=== PATIENT | female | born 1955 | race Caucasian/White ===

== ENCOUNTER → 2017-06-12 | Outpatient (CLI) | payer OTHER | LOC: FIMAGING 14:34 | PROVIDERS: ATTEND Internal Medicine | DX: Z12.31 Encounter for screening mammogram for malignant neoplasm of breast (principal); Z80.3 Family history of malignant neoplasm of breast | CPT/HCPCS: G0202 ==

== ENCOUNTER → 2018-01-23 | Outpatient (CLI) | payer OTHER | LOC: BHFA 13:00 | PROVIDERS: ATTEND Nurse Practitioner Family | DX: I42.9 Cardiomyopathy, unspecified (principal); I10 Essential (primary) hypertension; E78.5 Hyperlipidemia, unspecified; E03.9 Hypothyroidism, unspecified; I20.8 Other forms of angina pectoris ==

== ENCOUNTER 2018-03-17 12:18 | Inpatient (IN) | payer OTHER, MEDICARE ==
--- NOTE | 2018-03-17 12:37 | CPEKG ---
Heart Rate: 62 RR Interval: 968 P-R Interval: 160 QRSD Interval: 104 QT Interval: 428 QTC Interval: 435 P [place]: 65 QRS [place]ide: 9 T Wave [place]: 42 EKG Severity - NORMAL ECG - EKG Impression: SINUS RHYTHM Electronically Signed By: Nathanael Stahl 17-Mar-2018 13:30:10
--- NOTE | 2018-03-17 12:41 | EDPHY ---
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 The patient reports she has been experiencing chest pain for the past 3 days. 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 She has some degree of chronic chest pain which she typically is able to manage with beta-mony and long-acting nitrates. She has been increasing her beta-mony but has developed changing chest pain with some radiation to her neck and paresthesias in the left arm. The patient reports a cardiac catheterization many years ago which diagnosed cardiomyopathy which subsequently improved following treatment with carvedilol. The patient denies any fever, cough or congestion. She has had some recent adjustments to her thyroid medications. REVIEW OF SYSTEMS: A comprehensive 10 point review of systems is otherwise negative aside from elements mentioned in the history of present illness. Source: Patient Exam Limitations: No limitations - Personal History Current Tetanus Diphtheria and Acellular Pertussis (TDAP): Unsure - Medical/Surgical History Hx Asthma: Yes Hx Chronic Respiratory Disease: No Hx Diabetes: No Hx Cardiac Disease: Yes Hx Renal Disease: No Hx Cirrhosis: No Hx Alcoholism: No Hx HIV/AIDS: No Hx Splenectomy or Spleen Trauma: No Other PMH: ANGINA LARYNGEAL OBSTRUCTION /TRACH/HASHIMOTOS - Social History Smoking Status: Never smoked - Physical Exam Exam: General Appearance: Alert, no distress Eyes: Pupils equal and round no pallor or injection ENT, Mouth: Mucous membranes moist Respiratory: There are no retractions, lungs are clear to auscultation Cardiovascular: Regular rate and rhythm Gastrointestinal: Abdomen is soft and nontender, no masses, bowel sounds normal Neurological: 5/5 strength all 4 extremities Skin: Warm and dry, no rashes Musculoskeletal: Neck is supple nontender Extremities: symmetrical, full range of motion Constitutional: Initial Vital Signs Temperature (C) 36.4 C 03/17/18 12:22 Heart Rate 72 03/17/18 12:22 Respiratory Rate 18 03/17/18 12:22 Blood Pressure 140/95 H 03/17/18 12:22 O2 Sat (%) 97 03/17/18 12:22 O2 Delivery Mode Room Air Allergies/Adverse Reactions: fluticasone [From Advair Diskus] Allergy (Verified 03/17/18 12:20) Quinolones Allergy (Verified 03/17/18 12:19) salmeterol [From Advair Diskus] Allergy (Verified 03/17/18 12:20) Home Medications: Medication Instructions Recorded Asmanex 03/17/18 Aspirin 81mg (*) 03/17/18 Coreg 03/17/18 Isosorbide Dinitrate 03/17/18 Levothyroxine 03/17/18 Norvasc 10 mg (*) 03/17/18 Omeprazole 03/17/18 SIMVASTATIN 03/17/18 Singulair 03/17/18 Vitamin D3 03/17/18 Medical Decision Making - Diagnostics EKG Interpretation: EKG: Complete interpretation has been separately recorded in the [facility] archive. Summary impression: Sinus rhythm, slight ST segment depression noted in lead III. ED Course/Re-evaluation: The case was discussed with the nurse practitioner from [facility] who recommends admission to the hospital. She will be seen in consultation by the cardiology service. In the ED today she has nonspecific changes on her EKG. She is currently chest pain-free. The patient's initial troponin is negative. Consultation was made with Dr. Valle from Cardiology. He is requesting admission to the hospitalist service. They will make arrangements for stress testing for further characterization of her pain. Re-evaluated the patient at 1:00 p.m.. She is comfortable with the plan for admission. Consultation was made with the hospitalist service at 1:10 p.m.. Differential Diagnosis: Differential diagnosis considered includes acute coronary syndrome, costochondritis, esophageal spasm, pericarditis - Data Points Laboratory Results: Laboratory Results 03/17/18 12:34 03/17/18 12:34 03/17/18 03/17/18 03/17/18 12:40 12:34 12:34 WBC 8.77 10^3/uL 10^3/uL (3.80-9.50) RBC 5.12 10^6/uL 10^6/uL (4.18-5.33) Hgb 15.5 g/dL g/dL (12.6-16.3) Hct 45.4 % % (38.0-47.0) MCV 88.7 fL fL (81.5-99.8) MCH 30.3 pg pg (27.9-34.1) MCHC 34.1 g/dL g/dL (32.4-36.7) RDW 13.5 % % (11.5-15.2) Plt Count 275 10^3/uL 10^3/uL (150-400) MPV 9.7 fL fL (8.7-11.7) Neut % (Auto) 73.7 % % (39.3-74.2) Lymph % (Auto) 17.9 % % (15.0-45.0) Towns % (Auto) 7.1 % % (4.5-13.0) Eos % (Auto) 0.8 % % (0.6-7.6) Baso % (Auto) 0.3 % % (0.3-1.7) Nucleat RBC Rel Count 0.0 % % (0.0-0.2) Absolute Neuts (auto) 6.46 10^3/uL 10^3/uL (1.70-6.50) Absolute Lymphs (auto) 1.57 10^3/uL 10^3/uL (1.00-3.00) Absolute Monos (auto) 0.62 10^3/uL 10^3/uL (0.30-0.80) Absolute Eos (auto) 0.07 10^3/uL 10^3/uL (0.03-0.40) Absolute Basos (auto) 0.03 10^3/uL 10^3/uL (0.02-0.10) Absolute Nucleated RBC 0.00 10^3/uL 10^3/uL (0-0.01) Immature Gran % 0.2 % % (0.0-1.1) Immature Gran # 0.02 10^3/uL 10^3/uL (0.00-0.10) Sodium 141 mEq/L mEq/L (135-145) Potassium 4.1 mEq/L mEq/L (3.3-5.0) Chloride 102 mEq/L mEq/L (97-110) Carbon Dioxide 24 mEq/l mEq/l (22-31) Anion Gap 15 mEq/L mEq/L (8-16) BUN 16 mg/dL mg/dL (7-23) Creatinine 0.7 mg/dL mg/dL (0.6-1.0) Estimated GFR > 60 Glucose 117 mg/dL H mg/dL (70-100) Calcium 10.4 mg/dL mg/dL (8.5-10.4) POC Troponin I 0.00 ng/mL ng/mL (0.00-0.08) Troponin I Pending Point of Care Test Results: Chemistry 03/17/18 12:40 POC Troponin I 0.00 ng/mL ng/mL (0.00-0.08) Departure - Departure
[2018-03-17 12:49] LABS: PLATELET COUNT 275 10^3/uL (150-400)
[2018-03-17] MEDS ORDERED: ACETAMINOPHEN 325 MG TAB PO PRN (14:59)
[2018-03-17] MEDS ORDERED: ONDANSETRON 4 MG/2 ML VIAL IVP PRN (14:59)
[2018-03-17] MEDS ORDERED: ONDANSETRON DISINTEGRATING 4 MG TAB PO PRN (14:59)
--- NOTE | 2018-03-17 16:56 | PDCARPN ---
Cardiology Progress Note Chief Complaint: Return of chest pains Assessment/Plan: Assessment: Patient is a 63 y/o female with history of Cardio syndrome X, followed by [facility] (Dr. Araseli Em) on regular basis with good control of chest pains noted for the past several years, but a recent up tick in symptoms over the past several days. Elevation in Coreg did not result in improvement in symptoms for the patient. She was seen at [facility] today (Celestino Stephens NP), and after discussion with me, we opted to bring her in, and cycle troponins. At present, the patient was doing well. No voiced cardiovascular complaints. was at bedside. Office note from today was reviewed, as well as old testing (stress echo, angiography). Plan: (1) If troponins continue to be within normal limits would arrange for CTA tomorrow to better study the patient's coronary anatomy (2) If there is elevation to the troponins noted, would consider left heart catheterization (3) Continue beta blockers as at present (4) Echocardiogram (not urgent) can be performed in the morning for assessment of wall motion and chamber dimensions Subjective: Chest pains have been noted Reviewed/Discussed With: family, hospitalist Objective: Vital Signs (8 Hrs) Temp Pulse Resp BP Pulse Ox 03/17/18 15:06 36.8 C 77 14 128/83 H 97 03/17/18 14:49 36.8 C 90 16 119/77 96 Intake/Output (24 Hrs) 03/16/18 03/17/18 03/18/18 05:59 05:59 05:59 Other: Weight 61.3 kg Result Diagrams: 03/17/18 12:34 03/17/18 12:34 - Physical Exam Constitutional: WDWN, healthy appearing, no apparent distress Eyes: PERRL, EOMI Ears, Nose, Mouth, Throat: moist mucous membranes Cardiovascular: regular rate and rhythm, no murmurs, pulses symmetric bilat, No jugular vein distention Peripheral Pulses: 2+: dorsalis-pedis (R), dorsalis-pedis (L) Respiratory: clear to auscultate bilat, no crackles Skin: no edema Musculoskeletal: no muscular tenderness Neurologic: AAOx3, CN II-XII grossly intact Psychiatric: cooperative, interactive, following commands ICD10 Worksheet Patient Problems: Problems Problem Status Onset Chest pain Acute - ICD10 Problem Qualifiers (1) Chest pain Qualifiers: Chest pain type: precordial pain Qualified Code(s): R07.2 - Precordial pain
[2018-03-17] MEDS ORDERED: CARVEDILOL 3.125 MG TAB PO SCH (18:00)
[2018-03-17] MEDS: CARVEDILOL 6.25 MG TAB PO SCH (18:09)
[2018-03-17] MEDS ORDERED: CARVEDILOL 6.25 MG TAB PO SCH (18:45)
--- NOTE | 2018-03-17 20:04 | GHP ---
[f rep st] HISTORY AND PHYSICAL DATE OF ADMISSION: 03/17/2018 PRIMARY KITCHEN CLERK: Dr. Em. CHIEF COMPLAINT: Chest pain with left arm tingling. HISTORY OF PRESENT ILLNESS: The patient is a 63-year-old female with a past medical history of cardi omyopathy initially diagnosed in 2006, which was idiopathic. Subsequent echocardiograms have shown r ecovery of her ejection fraction. She has known coronary artery disease in the right coronary artery from prior cardiac catheterizations approximately 10 years ago. She also has a history of angina. She states over the past 2 months she has had issues with chest discomfort described as angina-like p ains, although over the past 3 days, symptoms seemed to escalate. She started noticing left arm numb ness as well. As such, she had a followup visit scheduled with her account receivable associate today. At that poin t time, she was referred to the emergency room for further evaluation. Her initial troponin was nega tive. There were no ST-segment elevations noted on her ECG. I did not appreciate any significant de viations in the ST-segment. I saw her in conjunction with Dr. Valle and tentative plans to trend tr oponins overnight. If they should elevate, then cardiac catheterization will be considered. Otherwi se, we will plan for CT angiography tomorrow. Otherwise, we will continue with her current medical r egimen that is in place. PAST MEDICAL HISTORY: 1. Cardiomyopathy, idiopathic. 2. Hypertension. 3. Hyperlipidemia. 4. Hypothyroidism. PAST SURGICAL HISTORY: Cardiac catheterization done in 2006 showed mild right coronary artery diseas e. HOME MEDICATIONS: 1. Amlodipine 10 mg daily. 2. Aspirin 81 mg daily. 3. Coreg 12.5 mg twice a day along with a 3.125 mg twice a day. 4. Vitamin D supplementation. 5. Isosorbide mononitrate 60 mg daily. 6. Levothyroxine 112 mcg daily, which was recently reduced from 125 mcg. 7. Singulair 10 mg daily. 8. Omeprazole 20 mg daily. 9. Zocor 40 mg nightly. ALLERGIES: Quinolones. FAMILY HISTORY: Mother and father are both . They both had vascular disease necessitating i ntervention. SOCIAL HISTORY: Patient is a lifelong nonsmoker. She is currently . She is a retired ICU nu e. She is a full code status. REVIEW OF SYSTEMS: 10-point review of systems negative other than complaints of chest pain with asso ciated left arm numbness. There has been no associated shortness of breath, nausea, or vomiting. PHYSICAL EXAM: VITAL SIGNS: Temperature 36.8, blood pressure 128/83, heart rate 77, respirations 14 , saturating 97% on room air. GENERAL: Patient appears mildly anxious. She is awake, alert, conver enoch, no acute distress. HEENT: Extraocular movements intact. No scleral icterus is noted. NECK: Supple. No thyroid enlargement is noted. CHEST: Clear to auscultation with normal respiratory eff ort. HEART: Regular. No murmurs are appreciated. ABDOMEN: Nondistended. : No Albright catheter in place. EXTREMITIES: No significant pitting edema or calf pain to palpation. NEUROLOGIC: Crania l nerves 2-12 grossly intact. LABS: White blood cell count 8, hemoglobin 15, platelets 275. Sodium 141, potassium 4.1, chloride 1 02, bicarb 24, BUN 16, creatinine 0.7, glucose 117. ASSESSMENT/PLAN: Chest pain as detailed in the HPI. The case was reviewed with Dr. Valle. [facility] is for trending troponins overnight, consider cardiac catheterization if these elevate. Otherwise, we will plan on CT angiography of the chest. Echocardiogram has also been ordered. Otherwise, her medical therapy will remain the same as she has been on prior to coming to the hospital. /[id number]/MODL
[2018-03-17] MEDS: MOMETASONE 220MCG INHALER IH SCH (20:52)
[2018-03-17] MEDS: SIMVASTATIN 40MG TAB PO SCH (21:05)
[2018-03-18 05:57] LABS: PLATELET COUNT 213 10^3/uL (150-400)
[2018-03-18] MEDS: LEVOTHYROXINE 112 MCG TAB PO SCH (06:10)
[2018-03-18] MEDS: MONTELUKAST SODIUM 10 MG TAB PO SCH (06:11)
[2018-03-18] MEDS ORDERED: CARVEDILOL 6.25 MG TAB PO SCH (08:00)
[2018-03-18] MEDS ORDERED: CARVEDILOL 3.125 MG TAB PO SCH (08:00)
[2018-03-18] MEDS: CARVEDILOL 6.25 MG TAB PO SCH (08:05)
[2018-03-18] MEDS: CHOLECALCIFEROL VIT D3 2,000 UNITS TAB/CAP PO SCH (08:06)
[2018-03-18] MEDS: ASPIRIN 81 MG CHEWABLE TAB PO SCH (08:06)
[2018-03-18] MEDS: ISOSORBIDE MONONITRATE 30 MG TAB.SR PO SCH (08:06)
[2018-03-18] MEDS: MOMETASONE 220MCG INHALER IH SCH ×2 (08:07→21:24)
[2018-03-18] MEDS: PANTOPRAZOLE SODIUM 40 MG TAB PO SCH (08:07)
[2018-03-18] MEDS: ENOXAPARIN 40 MG/0.4 ML SYR SC SCH (10:48)
[2018-03-18] MEDS ORDERED: IOPAMIDOL (ISOVUE 370) 100 ML BTL IV ONE ×4 (11:20→11:48)
--- NOTE | 2018-03-18 11:35 | ECHO ---
[email or web address] [address] [address] Main: [phone] Fax: Transthoracic Echocardiogram Name: RAMANDEEP DE LEON MR#: [id number] Study Date: 03/18/2018 Study Time: 10:26 AM Date of : 1955 Age: 63 year(s) Height: 167.6 cm (66 in.) Weight: 61.24 kg (135 lb.) BSA: 1.69 m2 Gender: Female Examination: Echo Indication: Chest Pain Image Quality: Contrast: Requested by: Jovan Valle BP: 117 mmHg/71 mmHg Heart Rate: Rhythm: Indication: Chest Pain Procedure Staff Physician Support Coordinator: Amy Ferreira RDCS Reading Physician: Diego Ott MD Requesting Provider: Conclusions: Normal study Measurements: Chambers Valvular Assessment AV/MV Valvular Assessment TV/PV Normal Normal Normal Name Value Range Name Value Range Name Value Range Ao Neha (MM): 3.1 cm (2.2 cm-3.7 AV Vmax: 1.06 m/s (1 m/s-1.7 TR Vmax: 2.04 mm/s ( - ) cm) m/s) TR PGmax: 17 mmHg ( - ) IVSd (2D): 0.5 cm (0.6 cm-1.1 AV meanP mmHg ( - ) syst. PAP: 22 mmHg ( - ) cm) LVDd (2D): 5.2 cm (3.9 cm-5.3 cm) LVDs (2D): 3.2 cm (2.1 cm-4 cm) LVPWd (2D): 0.7 cm ( - ) LVEF (MOD4): 55 % (>=55 %) EF Range: 60-65 % Continued Measurements: Chambers Valvular Assessment AV/MV Valvular Assessment TV/PV Name Value Name Value Name Value LADs: 2.5 cm MV E' Septal: 0.06 m/s CVP (est.): 5 mmHg LADs Lon.7 cm LA Area: 10.1 cm2 Additional Vessels Name Value Patient: RAMANDEEP DE LEON Study Date: 03/18/2018 Page 1 of 2 10:26 AM Ao Ascendin.9 cm Findings: Left Ventricle: Normal size left ventricle. No LV hypertrophy. Normal global systolic LV function. The ejection fraction is estimated to be 60-65 %. No regional wall motion abnormality. Right Ventricle: Normal size right ventricle. There is a moderator band noted in the right ventricle. Left Atrium: The left atrium is normal in size. Right Atrium: The right atrium is normal in size. Mitral Valve: The mitral valve is normal in appearance and function. Aortic Valve: The aortic valve is normal in appearance and function. The aortic valve is tri-leaflet. Trivial aortic valve regurgitation. Tricuspid Valve: The tricuspid valve is normal in appearance and function. Mild tricuspid regurgitation is present. The pulmonary artery pressure is normal. Pulmonic Valve: Pulmonary valve not well visualized. Aorta: The aorta is normal. Pericardium: Trace/mild anterior pericardial effusion.. (No Signature Object) Patient: RAMANDEEP DE LEON Study Date: 03/18/2018 Page 2 of 2 10:26 AM [id number]
[2018-03-18] MEDS ORDERED: METOPROLOL TARTRATE 5 MG/5 ML INJ ONE (12:11)
--- NOTE | 2018-03-18 14:26 | PDCARPN ---
Cardiology Progress Note Chief Complaint: chest pain/discomfort Assessment/Plan: Assessment: 03-18-2018 Patient continues to have chest discomfort today, similar character and severity as at admission. She states the severity of the discomfort waxes and wanes and is worse at night. She has been on the same medication regimen for her angina since 03/15. She inquired about increasing her beta mony dose in the evening in attempt to relieve the more severe nighttime chest discomfort. Her blood pressure and pulse have been within normal limits, but variable. She states her pulse increases into the 90s (usually 60s) when she stands up, which is a new complaint since admission. No complaints of dyspnea, orthopnea, dizziness/lightheadedness, nausea/vomiting, or ankle swelling. ECHO done today was grossly normal without evidence pathology. CTA done today showed mild/ moderate diffuse disease,no critical coronary lesions were identified. 03-17-2018 Patient is a 63 y/o female with history of Cardio syndrome X, followed by [facility] (Dr. Araseli Em) on regular basis with good control of chest pains noted for the past several years, but a recent up tick in symptoms over the past several days. Elevation in Coreg did not result in improvement in symptoms for the patient. She was seen at [facility] today (Celestino Stephens NP), and after discussion with me, we opted to bring her in, and cycle troponins. At present, the patient was doing well. No voiced cardiovascular complaints. was at bedside. Office note from today was reviewed, as well as old testing (stress echo, angiography). Plan: (1) Given the presence of CAD by CTA, would recommend more aggressive management of HTN and reassessment of cholesterol (patient's LDL should be suppressed to <70 mg/dL with the notable CAD). (2) Would consider GERD as possible symptom given the onset/worsening symptoms at night (3) Agree with patient's plans to uptitrate the beta blockers (4) Low dose ASA therapy is indicated with notable CAD (5) Would also consider ETT given the symptoms noted, and "mild to moderate" CAD by CTA Subjective: Ongoing complaints of chest pains today Objective: Vital Signs (8 Hrs) Temp Pulse Resp BP Pulse Ox 03/18/18 12:00 36.7 C 65 18 111/70 98 03/18/18 07:13 36.5 C 65 19 117/71 99 Intake/Output (24 Hrs) 03/17/18 03/18/18 03/19/18 05:59 05:59 05:59 Intake Total 650 Output Total 1 Balance 649 Intake: Oral (ml) 650 Output: Urine (ml) 1 Toilet 1 Other: Weight 61.3 kg Result Diagrams: 03/18/18 04:01 03/17/18 12:34 Cardiac Labs: Cardiac Lab Results (72 Hrs) 03/18/18 03/17/18 03/17/18 04:01 22:34 17:35 Troponin I < 0.012 < 0.012 < 0.012 Telemetry: normal sinus rhythm Echocardiogram: normal left ventricular systolic ejection fraction without valve pathology noted - Physical Exam Constitutional: WDWN, healthy appearing, no apparent distress Eyes: PERRL Ears, Nose, Mouth, Throat: moist mucous membranes Cardiovascular: regular rate and rhythm, pulses symmetric bilat, No systolic murmur, No jugular vein distention Peripheral Pulses: 2+: dorsalis-pedis (R), dorsalis-pedis (L) Respiratory: clear to auscultate bilat Gastrointestinal: normoactive bowel sounds Skin: no edema Musculoskeletal: no muscular tenderness, no joint effusions Neurologic: AAOx3, CN II-XII grossly intact ICD10 Worksheet Patient Problems: Problems Problem Status Onset Chest pain Acute - ICD10 Problem Qualifiers (1) Chest pain Qualifiers: Chest pain type: precordial pain Qualified Code(s): R07.2 - Precordial pain
--- NOTE | 2018-03-18 15:01 | ASMTCASEMG ---
Living Arrangements What is your living Answers: With Spouse arrangement? Who do you live with? Type Of Residence What kind of residence do Answers: House you live in? Discharge Plan Comments Coordination Status Comments Notes: Pts case discussed in morning rounds. Pt is a 63 y/o female admitted for chest pain. No other needs identified at this time. CM available for changes. Plan: Independent Date Signed: 03/18/2018 03:00 PM Electronically Signed By:DERECK Christine
--- NOTE | 2018-03-18 15:50 | HOSPPROG ---
Hospitalist Progress Note Assessment/Plan: # CP - unclear if angina from micro or macrovascular CAD - will up-titrate coreg today - cont imdur - CT cor with non-obstructive disease - will plan exercise MPI tomorrow - consider ranexa # CAD - cont asa/statin/bb # cardiomyopathy # ?NSVT - will d/w cards Subjective: still having CP Objective: Vital Signs Temp Pulse Resp BP Pulse Ox 36.7 C 65 18 111/70 98 03/18/18 12:00 03/18/18 12:00 03/18/18 12:00 03/18/18 12:00 03/18/18 12:00 Laboratory Results 03/18/18 04:01 03/17/18 03/18/18 03/19/18 05:59 05:59 05:59 Intake Total 650 Output Total 1 Balance [address] cor reviewed discussed with dr oakes - Time Spent With Patient Time Spent with Patient: greater than 35 minutes Time Spent with Patient: Greater than 35 minutes spent on this patients care, greater than 50% of time spent counseling, educating, and coordinating care regarding the above mentioned plan. - Physical Exam Constitutional: no apparent distress, appears nourished Cardiovascular: regular rate and rhythym, no murmur, rub, or gallop, systolic murmur Respiratory: no respiratory distress, no rales or rhonchi, clear to auscultation ICD10 Worksheet Patient Problems: Problems Problem Status Onset Chest pain Acute
--- NOTE | 2018-03-18 16:11 | PDMN ---
Medical Necessity Medical necessity: Change to IP, as of 03/18/18, per MD; los >2 mn for ongoing management of chest pain; requiring further workup/cardiac monitoring, Cardiology consult & med management; hx cardiomyopathy, htn, cad; per progress note & order 03/18/18
[2018-03-18] MEDS: CARVEDILOL 25 MG TAB PO SCH (17:39)
[2018-03-18] MEDS: SIMVASTATIN 40MG TAB PO SCH (21:52)
[2018-03-19] MEDS: MONTELUKAST SODIUM 10 MG TAB PO SCH (07:13)
[2018-03-19] MEDS: LEVOTHYROXINE 112 MCG TAB PO SCH (07:13)
[2018-03-19] MEDS: MOMETASONE 220MCG INHALER IH SCH ×2 (08:59→20:41)
--- NOTE | 2018-03-19 10:40 | PDCARST ---
CAR Stress Test Results Type of Stress Test: Nuclear TM stress test Indication: cp/CAD Description of Procedure: After informed consent was obtained, pt was exercised according to [place] Protocol. Monitoring was performed with standard stress water tester electrode placement. Vital signs were monitored according to protocol throughout the procedure. STRESS EKG AND HEMODYNAMIC DATA. Exercise time: 10 min. This is equivalent to: 10.8 METS. Resting heart rate: 97 bpm. Resting blood pressure: 126/72 mmHg. Resting O2 saturation: 94 %. Peak heart rate: 150 bpm. This is 96 % of age predicted maximum heart rate response. Peak blood pressure: 158/78 mmHg. Exercise O2: 94 %. Arrhythmias: occasional PVCs with exertion. Reason for termination: The test was stopped due to . Symptoms: The patient experienced no typical symptoms of angina during stress or recovery. STRESS TEST ANALYSIS. Baseline ECG: NSR. Stress ECG: SR with STD 1 mm horizontal in recovery which persisted through recovery period. exercise induced ischemic ECG changes: Yes. Rhythm: rare PVC arrhythmias noted during exercise and recovery. Blood pressure: normal blood pressure response to exercise. Exercise tolerance: The patient has normal exercise tolerance adjusted for age and gender. Symptoms: baseline cp that worsens to 4/10 SS cp with exertion Impression: DT: 10- 5- 4= +1 (intermediate risk) Conclusion: Await nuclear images.
[2018-03-19] MEDS: CARVEDILOL 25 MG TAB PO SCH ×2 (11:19→20:41)
[2018-03-19] MEDS: ASPIRIN 81 MG CHEWABLE TAB PO SCH (11:19)
[2018-03-19] MEDS: ISOSORBIDE MONONITRATE 30 MG TAB.SR PO SCH (11:20)
[2018-03-19] MEDS: CHOLECALCIFEROL VIT D3 2,000 UNITS TAB/CAP PO SCH (11:20)
[2018-03-19] MEDS: ENOXAPARIN 40 MG/0.4 ML SYR SC SCH (11:21)
[2018-03-19] MEDS: PANTOPRAZOLE SODIUM 40 MG TAB PO SCH (11:27)
--- NOTE | 2018-03-19 16:19 | HOSPPROG ---
Hospitalist Progress Note Assessment/Plan: # CP - nuc stress with small infarct - cath tomorrow - cont imdur and increased dose of coreg # CAD - cont asa/statin/bb # cardiomyopathy # NSVT - will d/w cards # tracheal stenosis - would complicate an intubation Subjective: CP better today Objective: Vital Signs Temp Pulse Resp BP Pulse Ox 36.8 C 64 16 113/76 95 03/19/18 11:17 03/19/18 11:17 03/19/18 11:17 03/19/18 11:17 03/19/18 11:17 03/18/18 03/19/18 03/20/18 05:59 05:59 05:59 Intake Total 2550 Balance 2550 high risk needing cath - Physical Exam Constitutional: no apparent distress, appears nourished Cardiovascular: regular rate and rhythym, no murmur, rub, or gallop, systolic murmur Respiratory: no respiratory distress, no rales or rhonchi, clear to auscultation Gastrointestinal: soft, non-tender abdomen, no palpable masses, No guarding, No rebound, No distension ICD10 Worksheet Patient Problems: Problems Problem Status Onset Chest pain Acute
--- NOTE | 2018-03-19 16:43 | PDCARPN ---
Cardiology Progress Note Chief Complaint: Patient doing well today, but continues to have chest pains. Assessment/Plan: Assessment: 03-19-2018 Stress testing today with both abnormal ECG findings as well as complaints of chest pains (DTS was +1). Imaging with inferior reversible perfusion defect noted. Ongoing complaints of chest pains. No cardiac biomarker elevation has been noted. Discussion today about probable need to have angiography given the symptoms, the noted CAD (by CTA) and the abnormal ETT and MPI testing. 03-18-2018 Patient continues to have chest discomfort today, similar character and severity as at admission. She states the severity of the discomfort waxes and wanes and is worse at night. She has been on the same medication regimen for her angina since 03/15. She inquired about increasing her beta mony dose in the evening in attempt to relieve the more severe nighttime chest discomfort. Her blood pressure and pulse have been within normal limits, but variable. She states her pulse increases into the 90s (usually 60s) when she stands up, which is a new complaint since admission. No complaints of dyspnea, orthopnea, dizziness/lightheadedness, nausea/vomiting, or ankle swelling. ECHO done today was grossly normal without evidence pathology. CTA done today showed mild/ moderate diffuse disease,no critical coronary lesions were identified. 03-17-2018 Patient is a 63 y/o female with history of Cardio syndrome X, followed by [facility] (Dr. Araseli Em) on regular basis with good control of chest pains noted for the past several years, but a recent up tick in symptoms over the past several days. Elevation in Coreg did not result in improvement in symptoms for the patient. She was seen at [facility] today (Celestino Stephens, KEITH), and after discussion with me, we opted to bring her in, and cycle troponins. At present, the patient was doing well. No voiced cardiovascular complaints. was at bedside. Office note from today was reviewed, as well as old testing (stress echo, angiography). Plan: (1) Would pursue angiography tomorrow morning (2) Continue ASA and statins (3) Continue with elevated dose of beta blockers (4) Further recommendations post angiography tomorrow Subjective: chest pains continue to be noted Reviewed/Discussed With: family, hospitalist Objective: Vital Signs (8 Hrs) Temp Pulse Resp BP Pulse Ox 03/19/18 11:17 36.8 C 64 16 113/76 95 Intake/Output (24 Hrs) 03/18/18 03/19/18 03/20/18 05:59 05:59 05:59 Intake Total 2550 Balance 2550 Intake: Oral (ml) 2550 Other: Number of Voids Toilet 2 Result Diagrams: 03/18/18 04:01 03/17/18 12:34 Telemetry: sinus rhythm - Physical Exam Constitutional: WDWN, healthy appearing, no apparent distress Eyes: PERRL, EOMI Ears, Nose, Mouth, Throat: moist mucous membranes Cardiovascular: regular rate and rhythm, pulses symmetric bilat, No jugular vein distention Peripheral Pulses: 2+: dorsalis-pedis (R), dorsalis-pedis (L) Respiratory: clear to auscultate bilat Gastrointestinal: normoactive bowel sounds Skin: no edema Musculoskeletal: no muscular tenderness Neurologic: AAOx3, CN II-XII grossly intact Psychiatric: cooperative, interactive ICD10 Worksheet Patient Problems: Problems Problem Status Onset Chest pain Acute - ICD10 Problem Qualifiers (1) Chest pain Qualifiers: Chest pain type: precordial pain Qualified Code(s): R07.2 - Precordial pain
[2018-03-19] MEDS: SIMVASTATIN 40MG TAB PO SCH (20:42)
[2018-03-20] MEDS ORDERED: NITROGLYCERIN 0.4 MG BTL SL ONE (03:18)
[2018-03-20] MEDS: MONTELUKAST SODIUM 10 MG TAB PO SCH (06:02)
[2018-03-20] MEDS: ISOSORBIDE MONONITRATE 30 MG TAB.SR PO SCH (06:10)
[2018-03-20] MEDS: CARVEDILOL 25 MG TAB PO SCH (06:13)
[2018-03-20] MEDS: LEVOTHYROXINE 112 MCG TAB PO SCH (06:13)
[2018-03-20] MEDS ORDERED: TEMAZEPAM 15 MG CAP PO PRN (08:08)
[2018-03-20] MEDS ORDERED: ACETAMINOPHEN 325 MG TAB PO PRN (08:08)
[2018-03-20] MEDS ORDERED: NITROGLYCERIN 0.4 MG BTL SL PRN (08:08)
[2018-03-20] MEDS ORDERED: DIAZEPAM 5 MG TAB PO ONE (08:08)
[2018-03-20] MEDS ORDERED: FAMOTIDINE 20 MG TAB PO ONE (08:08)
[2018-03-20] MEDS ORDERED: diphenhydrAMINE 25 MG CAP PO ONE ×2 (08:08→10:56)
[2018-03-20] MEDS ORDERED: NS 1,000 ML IV SCH (08:15)
--- NOTE | 2018-03-20 08:50 | PDCARPN ---
Cardiology Progress Note Chief Complaint: Problematic sleep last night. Ongoing complaints of chest pains Assessment/Plan: Assessment: 03-20-2018 Patient doing well today, but had some chest pains and troublesome sleep overnight. Discussions yesterday about angiography given known CAD by MSCT, and concerns that there might be more critical lesions with (a) abnormal ETT and (b) abnormal MPI perfusion. Risks and benefits of the procedure were discussed with the patient and . 03-19-2018 Stress testing today with both abnormal ECG findings as well as complaints of chest pains (DTS was +1). Imaging with inferior reversible perfusion defect noted. Ongoing complaints of chest pains. No cardiac biomarker elevation has been noted. Discussion today about probable need to have angiography given the symptoms, the noted CAD (by CTA) and the abnormal ETT and MPI testing. 03-18-2018 Patient continues to have chest discomfort today, similar character and severity as at admission. She states the severity of the discomfort waxes and wanes and is worse at night. She has been on the same medication regimen for her angina since 03/15. She inquired about increasing her beta mony dose in the evening in attempt to relieve the more severe nighttime chest discomfort. Her blood pressure and pulse have been within normal limits, but variable. She states her pulse increases into the 90s (usually 60s) when she stands up, which is a new complaint since admission. No complaints of dyspnea, orthopnea, dizziness/lightheadedness, nausea/vomiting, or ankle swelling. ECHO done today was grossly normal without evidence pathology. CTA done today showed mild/ moderate diffuse disease,no critical coronary lesions were identified. 03-17-2018 Patient is a 63 y/o female with history of Cardio syndrome X, followed by [facility] (Dr. Araseli Em) on regular basis with good control of chest pains noted for the past several years, but a recent up tick in symptoms over the past several days. Elevation in Coreg did not result in improvement in symptoms for the patient. She was seen at [facility] today (Celestino Stephens NP), and after discussion with me, we opted to bring her in, and cycle troponins. At present, the patient was doing well. No voiced cardiovascular complaints. was at bedside. Office note from today was reviewed, as well as old testing (stress echo, angiography). Plan: (1) Angiography this morning (2) Further recommendations to follow (3) Given some of the symptoms reported (overnight issues) would arrange for patient to have formal sleep study in outpatient setting Subjective: Chest pains and trouble sleeping last night. Reviewed/Discussed With: family, hospitalist Objective: Vital Signs (8 Hrs) Temp Pulse Resp BP Pulse Ox 03/20/18 07:48 36.1 C 64 18 90/67 L 97 03/20/18 06:13 58 L 116/80 03/20/18 06:12 116/80 03/20/18 06:10 116/80 03/20/18 03:30 58 L 103/69 98 03/20/18 03:25 64 120/86 H 98 03/20/18 02:40 36.6 C 62 18 121/90 H 74 L Intake/Output (24 Hrs) 03/19/18 03/20/18 03/21/18 05:59 05:59 05:59 Intake Total 2550 1350 Balance 2550 1350 Intake: Oral (ml) 2550 1350 Other: Number of Voids Toilet 2 2 Result Diagrams: 03/18/18 04:01 03/17/18 12:34 Telemetry: sinus rhythm - Physical Exam Constitutional: WDWN, healthy appearing, no apparent distress Eyes: PERRL, EOMI Ears, Nose, Mouth, Throat: moist mucous membranes Cardiovascular: regular rate and rhythm, pulses symmetric bilat, No jugular vein distention Peripheral Pulses: 2+: dorsalis-pedis (R), dorsalis-pedis (L) Respiratory: clear to auscultate bilat, no crackles, no wheezes Gastrointestinal: normoactive bowel sounds Skin: no rashes, no edema Musculoskeletal: no muscular tenderness Neurologic: AAOx3, CN II-XII grossly intact Psychiatric: cooperative, interactive, following commands ICD10 Worksheet Patient Problems: Problems Problem Status Onset Chest pain Acute - ICD10 Problem Qualifiers (1) Chest pain Qualifiers: Chest pain type: precordial pain Qualified Code(s): R07.2 - Precordial pain
--- NOTE | 2018-03-20 08:56 | CPEKG ---
Heart Rate: 67 RR Interval: 896 P-R Interval: 188 QRSD Interval: 96 QT Interval: 408 QTC Interval: 431 P [place]: 57 QRS [place]: 14 T Wave [place]: 21 EKG Severity - NORMAL ECG - EKG Impression: SINUS RHYTHM EKG Impression: INCOMPLETE RIGHT BUNDLE BRANCH BLOCK Electronically Signed By: Jovan Hugo 21-Mar-2018 08:48:55
[2018-03-20] MEDS ORDERED: Omeprazole [Omeprazole] 20 MG PO SCH (09:00)
[2018-03-20] MEDS: MOMETASONE 220MCG INHALER IH SCH (09:04)
[2018-03-20 09:11] LABS: INR 1.03 (0.83-1.16); PROTIME(PATIENT) 13.7 SEC (12.0-15.0)
[2018-03-20 09:13] LABS: PLATELET COUNT 223 10^3/uL (150-400)
[2018-03-20] MEDS: ASPIRIN 81 MG CHEWABLE TAB PO SCH (09:31)
[2018-03-20] MEDS: CHOLECALCIFEROL VIT D3 2,000 UNITS TAB/CAP PO SCH (09:31)
[2018-03-20] MEDS: ENOXAPARIN 40 MG/0.4 ML SYR SC SCH (09:33)
--- NOTE | 2018-03-20 10:04 | PDPROPOC ---
Sedation Plan of Care Sedation Plan of Care: vital signs stable, mental status noted, patient educated of risks, benefits, alternatives, patient can tolerate sedation ASA Classification: ASA 2 Planned drugs: fentanyl, midazolam Mallampati Score: Class 1 Mallampati Reference Image: Patient passed 3-3-2 rule?: Yes
[2018-03-20] MEDS ORDERED: FAMOTIDINE 20 MG TAB ONE (10:56)
[2018-03-20] MEDS ORDERED: DIAZEPAM 5 MG TAB ONE (10:56)
[2018-03-20] MEDS ORDERED: ASPIRIN EC 325 MG TAB PO ONE ×2 (10:56→11:45)
[2018-03-20] MEDS ORDERED: LIDOCAINE 1% 300 MG/30 ML SDV ONE (10:57)
[2018-03-20] MEDS ORDERED: fentaNYL 100 MCG/2 ML INJ ONE (10:57)
[2018-03-20] MEDS ORDERED: MIDAZOLAM 2 MG/2 ML VIAL ONE (10:58)
[2018-03-20] MEDS ORDERED: IOPAMIDOL (ISOVUE 370) 100 ML BTL IV ONE (10:58)
[2018-03-20] MEDS ORDERED: ATROPINE SULFATE 1 MG/10 ML SYR IVP PRN (14:05)
--- NOTE | 2018-03-20 16:28 | PDHOMEO2F ---
Home Oxygen Face to Face Home Orders: I certify that a physician or a nurse practitioner or physician's middle school assistant principal has had a [id number] encounter with this patient on the date of this order due to the diagnosis listed, which relates to the primary reason the patient requires home oxygen. Alternative treatments have been tried, or considered, and deemed ineffective. It is anticipated that supplemental oxygen will result in improvement with treatment. Home oxygen qualifying diagnosis: nocturnal hypoxia SpO2 on room air (%): 74 Frequency of home oxygen needed: during sleep Home oxygen liters per minute: 2 Home oxygen delivery device: nasal cannula Concentrator: Yes E-tanks for mobility and back up: No I certify that, based on these findings, the home oxygen is medically necessary for this patient for the following length of time. Length of time home oxygen needed: 3 months
--- NOTE | 2018-03-20 16:29 | ASDISCHSUM ---
Discharge Information Plan Status:Home with No Needs Medically Cleared to Leave:03/20/2018 Discharge Date:03/20/2018 CM D/C Disposition:Home, Routine, Self-Care ADT D/C Disposition:Home, Routine, Self-Care Projected Discharge Date:03/20/2018 Transportation at D/C: Discharge Delay Reason: Follow-Up Date:03/20/2018 Discharge Slot: Final Diagnosis: Placement Information Patient Contact Information Contact Name:JERSEY Relationship:Kiko Address:[address] City:[place] Alternate Phone: [facility]/Zip Code:[place] [address] Email: Financial Information Financial Class:Medicare Primary Plan Desc:MEDICARE INPATIENT Primary Plan Number:[id number] Secondary Plan Desc:LIZZETTEP/SABINE SUPPLEMENT Secondary Plan Number:[id number] Assessment Information LACE LACE Length of stay for Answers: 2 days current admission Acuity / Level of Answers: Yes Care: Did the patient have an inpatient admission? Comorbidities - select Answers: Coronary Artery Disease all that apply Opioid dependence / Chronic pain Other Notes: HTN; HLD # of Emergency department Answers: 1-2 visits in the last 6 months Score: 13 Date Signed: 03/20/2018 04:28 PM Electronically Signed By:Jeannie Soriano RN [facility] Initial CM Assessment Living Arrangements What is your living Answers: With Spouse arrangement? Who do you live with? Type Of Residence What kind of residence do Answers: House you live in? Discharge Plan Comments Coordination Status Comments Notes: Pts case discussed in morning rounds. Pt is a 63 y/o female admitted for chest pain. No other needs identified at this time. CM available for changes. Plan: Independent Date Signed: 03/18/2018 03:00 PM Electronically Signed By:DERECK Christine Case Management Discharge Plan Note Case Management Discharge Discharge Order Complete? Answers: Yes Patient to Obtain Answers: Independently Medications Discharge Comments Notes: 03/20/2018 Case Management Note Pt to d/c independent with follow up as directed. Date Signed: 03/20/2018 04:28 PM Electronically Signed By:Jeannie Soriano RN Intervention Information Intervention Type:MAYORGA-Refused Date of Service:03/18/2018 01:55 PM Patient Type:Observation Staff Member:Kierra Ren Hours: Discipline: Severity: Comment:
[2018-03-20 16:34] VITALS: BP 115/66
--- NOTE | 2018-03-20 17:06 | GDS ---
[f rep st] DISCHARGE SUMMARY ALL DIAGNOSES: 1. Chest pain, noncardiac. 2. History of coronary artery disease. 3. History of cardiomyopathy. 4. Short run of nonsustained ventricular tachycardia. 5. Tracheal stenosis. 6. Nocturnal hypoxia. 7. History of gastroesophageal reflux disease. HOSPITAL COURSE: 1. Chest pain: She underwent an extensive cardiac workup including CT angio of the coronaries which showed nonobstructive cardiac disease, nuclear stress test which showed a possible inferior infarct. Because of this, she underwent a cardiac catheterization. This showed quite patent coronary arteri es with no more than 30% to 40% stenosis. None of this was flow limiting. No intervention was taken . According to Dr. Valle, he does not feel as though her chest pain is due to cardiac disease and h e recommends looking at other possible options. 2. She also had some nocturnal hypoxia. She is concerned that this is exacerbating her pain. She i s requesting a prescription for nocturnal oxygen which I have supplied her. However, I am unsure if this will be covered by her insurance. 3. I have increased her Coreg to 25 mg p.o. b.i.d. as she feels as though this helps her symptoms. She would not tolerate an increase in her Imdur. FOLLOWUP: 1. Dr. Ibarra as she needs an outpatient sleep study, given her nocturnal hypoxia. She has home oxy gen ordered in the meantime. 2. Dr. Thao for an upper endoscopy, given possible GERD/esophageal pathology contributing to her p ain. BILLING: I spent more than 30 minutes on the day of discharge coordinating care. DISPOSITION: She is discharged home with her in stable condition. /[id number]/MODL
== END 2018-03-20 17:40 | disposition home or self-care (01) | DRG 287 ==
LOC: F2W 15:00 → OBSVTOIN 03-18 15:37
PROVIDERS: ADMIT Internal Medicine; ATTEND Internal Medicine
PROC: 4A023N7 Measurement of Cardiac Sampling and Pressure, Left Heart, Percutaneous Approach (ICD-10-PCS; principal; 2018-03-20)
PROC: B2151ZZ Fluoroscopy of Left Heart using Low Osmolar Contrast (ICD-10-PCS; principal; 2018-03-20)
PROC: B2111ZZ Fluoroscopy of Multiple Coronary Arteries using Low Osmolar Contrast (ICD-10-PCS; principal; 2018-03-20)
DX: R07.89 Other chest pain (principal); R09.02 Hypoxemia; I47.2 Ventricular tachycardia; J39.8 Other specified diseases of upper respiratory tract; I25.119 Atherosclerotic heart disease of native coronary artery with unspecified angina pectoris; K21.9 Gastro-esophageal reflux disease without esophagitis; E06.3 Autoimmune thyroiditis; I42.9 Cardiomyopathy, unspecified; I10 Essential (primary) hypertension; E78.5 Hyperlipidemia, unspecified
CPT/HCPCS: 84484-PO; 93005-PO; A9500; C1760; G0378; J1644; J2250; J2270; J3010; Q9967

== ENCOUNTER → 2018-03-31 | Outpatient (CLI) | payer OTHER, MEDICARE | LOC: FIMAGING 09:22 | PROVIDERS: ATTEND Internal Medicine Gastroenterology | DX: K44.9 Diaphragmatic hernia without obstruction or gangrene (principal); K21.9 Gastro-esophageal reflux disease without esophagitis ==

== ENCOUNTER → 2018-07-23 | Outpatient (CLI) | payer OTHER, MEDICARE | LOC: FIMAGING 14:01 | PROVIDERS: ATTEND Internal Medicine | DX: Z12.31 Encounter for screening mammogram for malignant neoplasm of breast (principal) ==